=== PATIENT | male | born 1930 | race Caucasian/White ===

== ENCOUNTER → 2019-02-02 | Outpatient (CLI) | payer MEDICARE, BC | END | disposition home or self-care (01) | LOC: WOUND 08:38 | PROVIDERS: ATTEND Podiatrist Foot & Ankle Surgery | DX: L97.412 Non-pressure chronic ulcer of right heel and midfoot with fat layer exposed (principal); L97.312 Non-pressure chronic ulcer of right ankle with fat layer exposed; I10 Essential (primary) hypertension; E78.5 Hyperlipidemia, unspecified; J45.909 Unspecified asthma, uncomplicated; H35.30 Unspecified macular degeneration; I25.2 Old myocardial infarction; H91.90 Unspecified hearing loss, unspecified ear; K21.9 Gastro-esophageal reflux disease without esophagitis; Z87.891 Personal history of nicotine dependence; Z86.73 Personal history of transient ischemic attack (TIA), and cerebral infarction without residual deficits | CPT/HCPCS: 97597; G0463 ==

== ENCOUNTER → 2019-02-09 | Outpatient (CLI) | payer MEDICARE, BC | END | disposition home or self-care (01) | LOC: WOUND 08:59 | PROVIDERS: ATTEND Podiatrist Foot & Ankle Surgery | DX: L97.412 Non-pressure chronic ulcer of right heel and midfoot with fat layer exposed (principal); L97.312 Non-pressure chronic ulcer of right ankle with fat layer exposed; I25.2 Old myocardial infarction; E78.5 Hyperlipidemia, unspecified; I10 Essential (primary) hypertension; H35.30 Unspecified macular degeneration; J45.909 Unspecified asthma, uncomplicated; H91.90 Unspecified hearing loss, unspecified ear; K21.9 Gastro-esophageal reflux disease without esophagitis; Z87.891 Personal history of nicotine dependence; Z86.73 Personal history of transient ischemic attack (TIA), and cerebral infarction without residual deficits | CPT/HCPCS: 11042 ==

== ENCOUNTER → 2019-02-16 | Outpatient (CLI) | payer MEDICARE, BC | END | disposition home or self-care (01) | LOC: WOUND 08:31 | PROVIDERS: ATTEND Podiatrist Foot & Ankle Surgery | DX: L97.412 Non-pressure chronic ulcer of right heel and midfoot with fat layer exposed (principal); I25.2 Old myocardial infarction; E78.5 Hyperlipidemia, unspecified; I10 Essential (primary) hypertension; H35.30 Unspecified macular degeneration; J45.909 Unspecified asthma, uncomplicated; H91.90 Unspecified hearing loss, unspecified ear; K21.9 Gastro-esophageal reflux disease without esophagitis; Z87.891 Personal history of nicotine dependence; Z86.73 Personal history of transient ischemic attack (TIA), and cerebral infarction without residual deficits | CPT/HCPCS: 11042 ==

== ENCOUNTER → 2019-02-23 | Outpatient (CLI) | payer MEDICARE, BC | END | disposition home or self-care (01) | LOC: WOUND 09:09 | PROVIDERS: ATTEND Podiatrist Foot & Ankle Surgery | DX: L97.412 Non-pressure chronic ulcer of right heel and midfoot with fat layer exposed (principal); L97.312 Non-pressure chronic ulcer of right ankle with fat layer exposed; I25.2 Old myocardial infarction; E78.5 Hyperlipidemia, unspecified; I10 Essential (primary) hypertension; H35.30 Unspecified macular degeneration; J45.909 Unspecified asthma, uncomplicated; H91.90 Unspecified hearing loss, unspecified ear; K21.9 Gastro-esophageal reflux disease without esophagitis; Z87.891 Personal history of nicotine dependence; Z86.73 Personal history of transient ischemic attack (TIA), and cerebral infarction without residual deficits | CPT/HCPCS: 11042 ==

== ENCOUNTER → 2019-03-02 | Outpatient (CLI) | payer MEDICARE, BC | END | disposition home or self-care (01) | LOC: WOUND 08:30 | PROVIDERS: ATTEND Podiatrist Foot & Ankle Surgery | DX: L97.412 Non-pressure chronic ulcer of right heel and midfoot with fat layer exposed (principal); L97.312 Non-pressure chronic ulcer of right ankle with fat layer exposed; I25.2 Old myocardial infarction; E78.5 Hyperlipidemia, unspecified; I10 Essential (primary) hypertension; H35.30 Unspecified macular degeneration; J45.909 Unspecified asthma, uncomplicated; H91.90 Unspecified hearing loss, unspecified ear; K21.9 Gastro-esophageal reflux disease without esophagitis; Z87.891 Personal history of nicotine dependence; Z86.73 Personal history of transient ischemic attack (TIA), and cerebral infarction without residual deficits | CPT/HCPCS: 11043; 87070; 87077; 87186; 87205 ==

== ENCOUNTER 2019-03-16 08:36 | Outpatient (CLI) | payer MEDICARE, BC | END 2019-03-16 23:59 | disposition home or self-care (01) | LOC: WOUND 08:36 | PROVIDERS: ATTEND Internal Medicine Cardiovascular Disease | DX: L97.413 Non-pressure chronic ulcer of right heel and midfoot with necrosis of muscle (principal); L97.313 Non-pressure chronic ulcer of right ankle with necrosis of muscle; L03.115 Cellulitis of right lower limb; I25.2 Old myocardial infarction; E78.5 Hyperlipidemia, unspecified; I10 Essential (primary) hypertension; H35.30 Unspecified macular degeneration; J45.909 Unspecified asthma, uncomplicated; H91.90 Unspecified hearing loss, unspecified ear; K21.9 Gastro-esophageal reflux disease without esophagitis; E66.9 Obesity, unspecified; Z68.30 Body mass index [BMI] 30.0-30.9, adult; Z96.652 Presence of left artificial knee joint; Z87.891 Personal history of nicotine dependence; Z86.73 Personal history of transient ischemic attack (TIA), and cerebral infarction without residual deficits | CPT/HCPCS: 11043 ==

== ENCOUNTER 2019-03-23 08:28 | Outpatient (CLI) | payer MEDICARE, BC | END 2019-03-23 23:59 | disposition home or self-care (01) | LOC: WOUND 08:28 | PROVIDERS: ATTEND Podiatrist Foot & Ankle Surgery | DX: L97.413 Non-pressure chronic ulcer of right heel and midfoot with necrosis of muscle (principal); L97.313 Non-pressure chronic ulcer of right ankle with necrosis of muscle; L03.115 Cellulitis of right lower limb; I25.2 Old myocardial infarction; I10 Essential (primary) hypertension; E78.5 Hyperlipidemia, unspecified; H35.30 Unspecified macular degeneration; J45.909 Unspecified asthma, uncomplicated; H91.90 Unspecified hearing loss, unspecified ear; K21.9 Gastro-esophageal reflux disease without esophagitis; E66.9 Obesity, unspecified; Z68.30 Body mass index [BMI] 30.0-30.9, adult; Z96.652 Presence of left artificial knee joint; Z87.891 Personal history of nicotine dependence; Z86.73 Personal history of transient ischemic attack (TIA), and cerebral infarction without residual deficits | CPT/HCPCS: 11043; 97597 ==

== ENCOUNTER 2019-03-30 08:26 | Outpatient (CLI) | payer MEDICARE, BC | END 2019-03-30 23:59 | disposition home or self-care (01) | LOC: WOUND 08:26 | PROVIDERS: ATTEND Podiatrist Foot & Ankle Surgery | DX: L97.413 Non-pressure chronic ulcer of right heel and midfoot with necrosis of muscle (principal); L03.115 Cellulitis of right lower limb; I25.2 Old myocardial infarction; I10 Essential (primary) hypertension; E78.5 Hyperlipidemia, unspecified; H35.30 Unspecified macular degeneration; J45.909 Unspecified asthma, uncomplicated; H91.90 Unspecified hearing loss, unspecified ear; K21.9 Gastro-esophageal reflux disease without esophagitis; E66.9 Obesity, unspecified; Z68.30 Body mass index [BMI] 30.0-30.9, adult; Z96.652 Presence of left artificial knee joint; Z87.891 Personal history of nicotine dependence; Z86.73 Personal history of transient ischemic attack (TIA), and cerebral infarction without residual deficits | CPT/HCPCS: 11043 ==

== ENCOUNTER 2019-04-06 08:26 | Outpatient (CLI) | payer MEDICARE, BC | END 2019-04-06 23:59 | disposition home or self-care (01) | LOC: WOUND 08:26 | PROVIDERS: ATTEND Podiatrist Foot & Ankle Surgery | DX: L97.412 Non-pressure chronic ulcer of right heel and midfoot with fat layer exposed (principal); L97.313 Non-pressure chronic ulcer of right ankle with necrosis of muscle; L97.221 Non-pressure chronic ulcer of left calf limited to breakdown of skin; E78.5 Hyperlipidemia, unspecified; I10 Essential (primary) hypertension; K21.9 Gastro-esophageal reflux disease without esophagitis; I25.2 Old myocardial infarction; Z86.73 Personal history of transient ischemic attack (TIA), and cerebral infarction without residual deficits; Z96.652 Presence of left artificial knee joint; Z87.891 Personal history of nicotine dependence | CPT/HCPCS: 11043 ==

== ENCOUNTER 2019-04-13 08:27 | Outpatient (CLI) | payer MEDICARE, BC | END 2019-04-13 23:59 | disposition home or self-care (01) | LOC: WOUND 08:27 | PROVIDERS: ATTEND Podiatrist Foot & Ankle Surgery | DX: L97.412 Non-pressure chronic ulcer of right heel and midfoot with fat layer exposed (principal); L97.313 Non-pressure chronic ulcer of right ankle with necrosis of muscle; L97.221 Non-pressure chronic ulcer of left calf limited to breakdown of skin; E78.5 Hyperlipidemia, unspecified; I10 Essential (primary) hypertension; K21.9 Gastro-esophageal reflux disease without esophagitis; I25.2 Old myocardial infarction; Z86.73 Personal history of transient ischemic attack (TIA), and cerebral infarction without residual deficits; Z96.652 Presence of left artificial knee joint; Z87.891 Personal history of nicotine dependence | CPT/HCPCS: 11043 ==

== ENCOUNTER → 2019-06-29 | Outpatient (CLI) | payer MEDICARE, BC | END | disposition home or self-care (01) | LOC: WOUND 08:30 | PROVIDERS: ATTEND Podiatrist Foot & Ankle Surgery | DX: L97.412 Non-pressure chronic ulcer of right heel and midfoot with fat layer exposed (principal); L97.313 Non-pressure chronic ulcer of right ankle with necrosis of muscle; L97.221 Non-pressure chronic ulcer of left calf limited to breakdown of skin; E78.5 Hyperlipidemia, unspecified; I10 Essential (primary) hypertension; J45.909 Unspecified asthma, uncomplicated; H91.90 Unspecified hearing loss, unspecified ear; I25.2 Old myocardial infarction; E66.9 Obesity, unspecified; K21.9 Gastro-esophageal reflux disease without esophagitis; I25.10 Atherosclerotic heart disease of native coronary artery without angina pectoris; E78.00 Pure hypercholesterolemia, unspecified; Z96.652 Presence of left artificial knee joint; Z87.891 Personal history of nicotine dependence; Z86.73 Personal history of transient ischemic attack (TIA), and cerebral infarction without residual deficits; Z68.30 Body mass index [BMI] 30.0-30.9, adult | CPT/HCPCS: 97597 ==

== ENCOUNTER → 2019-07-06 | Outpatient (CLI) | payer MEDICARE, BC | END | disposition home or self-care (01) | LOC: WOUND 09:03 | PROVIDERS: ATTEND Podiatrist Foot & Ankle Surgery | DX: L97.313 Non-pressure chronic ulcer of right ankle with necrosis of muscle (principal); L97.412 Non-pressure chronic ulcer of right heel and midfoot with fat layer exposed; L97.221 Non-pressure chronic ulcer of left calf limited to breakdown of skin; I10 Essential (primary) hypertension; E78.5 Hyperlipidemia, unspecified; J45.909 Unspecified asthma, uncomplicated; K21.9 Gastro-esophageal reflux disease without esophagitis; I25.2 Old myocardial infarction; Z86.73 Personal history of transient ischemic attack (TIA), and cerebral infarction without residual deficits; Z87.891 Personal history of nicotine dependence | CPT/HCPCS: 97597 ==